=== PATIENT | female | born 1970 | race Caucasian/White ===

== ENCOUNTER 2017-07-10 08:42 | Emergency (ER) | payer OTHER ==
[2017-07-10 08:46] VITALS: BP 150/71; PULSE 71; RESP 18; TEMP 98.4
--- NOTE | 2017-07-10 09:03 | ED ---
General Adult HPI - General Chief complaint: Extremity Injury, Upper Stated complaint: Hand injury Time Seen by Provider: 07/10/17 08:47 Source: patient, RN notes reviewed Mode of arrival: ambulatory Limitations: no limitations - History of Present Illness Initial comments: Patient is a 47-year-old female who presents emergency room today with a chief complaint of injury to the right hand and wrist area. She states that she slipped on the ice at work today approximately 2 hours ago. Doesn't pain at the base of the right thumb. States worse with extension of the right wrist. Admits to hitting the right knee but states feels just bruised. Denies any other complaints or injuries. Patient denies any recent fever, chills, shortness of breath, chest pain, back pain, abdominal pain, nausea or vomiting, numbness or tingling, headaches or visual changes, or any other complaints. - Related Data Home Medications Medication Instructions Recorded Confirmed L.acidoph,Paracasei, B.lactis 1 cap PO DAILY 07/10/17 07/10/17 [Probiotic] Previous Rx's Medication Instructions Recorded RX: Ibuprofen [Motrin] 600 mg PO Q6HR PRN #30 day 07/10/17 Allergies Allergy/AdvReac Type Severity Reaction Status Date / Time codeine AdvReac Nausea & Verified 07/10/17 08:55 Vomiting Review of Systems ROS Statement: Those systems with pertinent positive or pertinent negative responses have been documented in the HPI. ROS Other: All systems not noted in ROS Statement are negative. Past Medical History Past Medical History: No Reported History History of Any Multi-Drug Resistant Organisms: None Reported Past Surgical History: Breast Surgery, Hysterectomy, Tubal Ligation Past Psychological History: No Psychological Hx Reported Smoking Status: Current some day smoker Past Alcohol Use History: Occasional Past Drug Use History: None Reported - Past Family History Mother Family Medical History: No Reported History General Exam - General Exam Comments Initial Comments: General: The patient is awake and alert, in no distress, and does not appear acutely ill. Neck: The neck is supple, there is no tenderness or JVD. Cardiovascular: There is a regular rate and rhythm. No murmur, rub or gallop is appreciated. Respiratory: Lungs are clear to auscultation, respirations are non-labored, breath sounds are equal. No wheezes, stridor, rales, or rhonchi. Musculoskeletal: Patient does have normal appearance of the right wrist no obvious deformity. Shows good range of motion. Tender to palpation over the base of the right thumb. Sensation intact pulses equal bilateral 2+ strength 5/ 5. Neurological: A&O x 3. CN II-XII intact, There are no obvious motor or sensory deficits. Coordination appears grossly intact. Speech is normal. Skin: Skin is warm and dry and no rashes or lesions are noted. Psychiatric: Normal mood and affect. Limitations: no limitations Course Vital Signs 07/10/17 08:44 Temperature 98.4 F Pulse Rate 71 Respiratory 18 Rate Blood Pressure 150/71 O2 Sat by Pulse 100 Oximetry Medical Decision Making - Medical Decision Making X-ray reviewed negative for any acute fracture dislocation. Advised to use Erik wrap for comfort. Advised ice elevate and ibuprofen. She states ice is feeling better here in emergency room. Will be discharged home advise ibuprofen advised follow-up in 7-10 days for repeat x-rays symptoms persist. Disposition Clinical Impression: Wrist sprain Disposition: HOME SELF-CARE Condition: Good Instructions: Wrist Sprain (ED) Additional Instructions: Please use Erik wrap on up and moving around for comfort. Please ice and elevate the area at least 4 times a day for 20 minutes at a time. Please follow -up in 7-10 days for repeat x-rays if symptoms persist. Prescriptions: RX: Ibuprofen [Motrin] 600 mg PO Q6HR PRN #30 day PRN Reason: Pain Referrals: None,Stated [Primary Care Provider] - 1-2 days Jaron Mckenna DO [Doctor of Osteopathic Medicine] - 1-2 days Time of Disposition: 09:16
--- NOTE | 2017-07-10 09:09 | XR ---
EXAMINATION TYPE: XR hand complete RT DATE OF EXAM: 07/10/2017 COMPARISON: NONE HISTORY: 47-year-old female fall this morning at work, pain to the base of the thumb TECHNIQUE: 3 views FINDINGS: No acute fracture, subluxation, or dislocation is seen. Joint spaces throughout are maintained. IMPRESSION: No acute osseous abnormality seen.
== END 2017-07-10 10:08 | disposition home or self-care (01) ==
LOC: EC 08:42
DX: S63.501A Unspecified sprain of right wrist, initial encounter (principal); F17.200 Nicotine dependence, unspecified, uncomplicated; Z88.5 Allergy status to narcotic agent; W00.0XXA Fall on same level due to ice and snow, initial encounter; Y92.69 Other specified industrial and construction area as the place of occurrence of the external cause; Y99.0 Civilian activity done for income or pay
CPT/HCPCS: 99283

== ENCOUNTER 2019-06-21 13:56 | Emergency (ER) | payer OTHER ==
[2019-06-21 15:17] VITALS: BP 149/79; PULSE 73; TEMP 98.3
--- NOTE | 2019-06-21 16:40 | ED ---
Lower Extremity Injury HPI - General Chief Complaint: Extremity Injury, Lower Stated Complaint: fall, toe injury Time Seen by Provider: 06/21/19 16:38 Source: patient Mode of arrival: ambulatory Limitations: no limitations - History of Present Illness Initial Comments: Patient is a 49-year-old female presents emergency Department with complaints of left foot pain since this morning. Patient states she fell down a few stairs injuring her left foot. She's been having pain and swelling ever since. Patient denies any other injuries in the fall. She did not hit her head, no LOC, no nausea or vomiting. Patient has no other complaints at this time. She denies any previous injuries or surgeries to her left foot. Upon arrival to the ER, her vital signs are stable. - Related Data Home Medications Medication Instructions Recorded Confirmed L.acidoph,Paracasei, B.lactis 1 cap PO DAILY 07/10/17 07/10/17 [Probiotic] Previous Rx's Medication Instructions Recorded Ibuprofen [Motrin] 600 mg PO Q6HR PRN #30 day 07/10/17 Allergies Allergy/AdvReac Type Severity Reaction Status Date / Time codeine AdvReac Nausea & Verified 06/21/19 15:16 Vomiting Review of Systems ROS Statement: Those systems with pertinent positive or pertinent negative responses have been documented in the HPI. ROS Other: All systems not noted in ROS Statement are negative. Past Medical History Past Medical History: No Reported History History of Any Multi-Drug Resistant Organisms: None Reported Past Surgical History: Breast Surgery, Hysterectomy, Tubal Ligation Past Psychological History: No Psychological Hx Reported Smoking Status: Former smoker Past Alcohol Use History: Occasional Past Drug Use History: None Reported - Past Family History Mother Family Medical History: No Reported History General Exam - General Exam Comments Initial Comments: GENERAL: Well-appearing, well-nourished and in no acute distress. HEAD: Atraumatic, normocephalic. EYES: Pupils equal round and reactive to light, extraocular movements intact, sclera anicteric, conjunctiva are normal. ENT: Moist mucous membranes. NECK: Normal range of motion, supple without lymphadenopathy or JVD. LUNGS: Breath sounds clear to auscultation bilaterally and equal. No wheezes rales or rhonchi. HEART: Regular rate and rhythm without murmurs, rubs or gallops. EXTREMITIES: Pain with palpation of dorsal aspect of the left foot over the first metatarsal and first toe. There is mild swelling and bruising to the area. Patient has full range of motion of the left foot and ankle. Patient is a vascular intact. NEUROLOGICAL: Normal speech, normal gait. PSYCH: Normal mood, normal affect. SKIN: Warm, Dry, normal turgor, no rashes or lesions noted. Limitations: no limitations Course Vital Signs 06/21/19 06/21/19 15:13 17:32 Temperature 98.3 F Pulse Rate 73 Respiratory 18 17 Rate Blood Pressure 149/79 O2 Sat by Pulse 99 Oximetry Medical Decision Making - Medical Decision Making Patient is a 49-year-old female presenting with left foot pain since this morning after fall. X-ray show no acute fractures dislocations. Discussed these findings with the patient. This is most likely a bone contusion. Patient will use ice and Motrin for pain relief. She will follow up with her PCP if symptoms persist. She is in agreement with this plan of care. Disposition Clinical Impression: Contusion of left foot Disposition: HOME SELF-CARE Condition: Stable Instructions (If sedation given, give patient instructions): Arthralgia (ED) Additional Instructions: Please return to the Emergency Department if symptoms worsen or any other concerns. Continue to ice, use Motrin or Tylenol for pain relief. Is patient prescribed a controlled substance at d/c from ED?: No Referrals: None,Stated [Primary Care Provider] - 1-2 days
--- NOTE | 2019-06-21 17:03 | XR ---
EXAMINATION TYPE: XR foot complete LT DATE OF EXAM: 06/21/2019 COMPARISON: NONE HISTORY: Big toe pain TECHNIQUE: 3 views FINDINGS: There are plantar and Achilles calcaneal spurs. Metatarsals are intact. I see no fracture n or dislocation. Joint spaces are fairly normal. The big toe appears intact. IMPRESSION: No fracture seen.
[2019-06-21 17:32] VITALS: RESP 17
== END 2019-06-21 17:32 | disposition home or self-care (01) ==
LOC: EC 13:56
DX: S90.32XA Contusion of left foot, initial encounter (principal); W10.9XXA Fall (on) (from) unspecified stairs and steps, initial encounter; Z87.891 Personal history of nicotine dependence; Z88.5 Allergy status to narcotic agent; Y92.89 Other specified places as the place of occurrence of the external cause
CPT/HCPCS: 99283

== ENCOUNTER 2019-11-18 13:13 | Emergency (ER) | payer OTHER ==
[2019-11-18 13:19] VITALS: BP 141/74; PULSE 72; RESP 18; TEMP 98.1
[2019-11-18] MEDS ORDERED: LIDOCAINE 1%-EPI 1:100,000 20 ML VIAL SQ STA (13:30)
[2019-11-18] MEDS ORDERED: AMOXIC-POT CLAV 875-125MG 1 EACH TAB PO STA (13:35)
--- NOTE | 2019-11-18 13:39 | ED ---
ENT HPI - General Chief complaint: Dental/Oral Stated complaint: dental pain Time Seen by Provider: 11/18/19 13:21 Source: patient Mode of arrival: ambulatory Limitations: no limitations - History of Present Illness Initial comments: Patient is a 49-year-old female presenting to emergency Department with chief complaint of dental pain. Patient reports she has an appointment scheduled to see the dentist in 3 days but the pain continues to increase in severity. States she has fractured tooth #3 and is partially embedded in the gum. States the pain has gotten significantly worse since this morning. States she has also noticed swelling on the right side of her face but denies any pain at the [place] mouth or in the submandibular region. Denies any dysphagia, then aphagia or dyspnea. Patient states she is in the emergency department requesting antibiotics. Denies any night sweats or chills. - Related Data Home Medications Medication Instructions Recorded Confirmed L.acidoph,Paracasei, B.lactis 1 cap PO DAILY 07/10/17 07/10/17 [Probiotic] Previous Rx's Medication Instructions Recorded Ibuprofen [Motrin] 600 mg PO Q6HR PRN #30 day 07/10/17 Amoxicillin/Potassium Clav 1 tab PO Q12HR #20 tab 11/18/19 [Augmentin 875-125 Tablet] Allergies Allergy/AdvReac Type Severity Reaction Status Date / Time codeine AdvReac Nausea & Verified 11/18/19 13:18 Vomiting Review of Systems ROS Statement: Those systems with pertinent positive or pertinent negative responses have been documented in the HPI. ROS Other: All systems not noted in ROS Statement are negative. Past Medical History Past Medical History: No Reported History History of Any Multi-Drug Resistant Organisms: None Reported Past Surgical History: Breast Surgery, Hysterectomy, Tubal Ligation Past Psychological History: No Psychological Hx Reported Smoking Status: Former smoker Past Alcohol Use History: Occasional Past Drug Use History: None Reported - Past Family History Mother Family Medical History: No Reported History General Exam Limitations: no limitations General appearance: alert, in no apparent distress Head exam: Present: atraumatic, normocephalic, normal inspection Eye exam: Present: normal appearance, PERRL, EOMI Pupils: Present: normal accommodation ENT exam: Present: normal exam, normal oropharynx (Partially fractured tooth #3. No signs of periapical abscess. No oral lesions. Mild swelling on the right side of the face. No tenderness in the [place] mouthparts to mandibular region.), mucous membranes moist Neck exam: Present: normal inspection, full ROM. Absent: tenderness, lymphadenopathy Respiratory exam: Present: normal lung sounds bilaterally. Absent: respiratory distress, wheezes Cardiovascular Exam: Present: regular rate, normal rhythm, normal heart sounds Extremities exam: Present: normal inspection, full ROM Back exam: Present: normal inspection, full ROM Neurological exam: Present: alert, oriented X3 Psychiatric exam: Present: normal affect, normal mood Skin exam: Present: warm, dry, intact, normal color Course Vital Signs 11/18/19 13:14 Temperature 98.1 F Pulse Rate 72 Respiratory 18 Rate Blood Pressure 141/74 O2 Sat by Pulse 97 Oximetry Medical Decision Making - Medical Decision Making Patient is a 49-year-old female presenting to emergency Department with chief complaint abdominal pain. Patient does have partial tooth fracture on tooth #2 she woke up this morning with mild right-sided facial swelling and pain in the region. On exam she does have gingival inflammation along with right-sided mild facial swelling. No signs of Lloyd's angina. Patient will be started on Augmentin in the ED and discharged with a 10 day course of Augmentin. Advised to alternate between Tylenol and Motrin for pain control. She has an appointment in the next few days to see a dentist. Return parameters thoroughly discussed with patient is understanding and agreeable. Case discussed with physician. Disposition Clinical Impression: Acute gingival inflammation, Tooth caries Disposition: HOME SELF-CARE Condition: Good Instructions (If sedation given, give patient instructions): Toothache (ED) Additional Instructions: Take prescribed medication as directed. Follow-up with a dentist. Return to emergency department if symptoms worsen. Prescriptions: Amoxicillin/Potassium Clav [Augmentin 875-125 Tablet] 1 tab PO Q12HR #20 tab Is patient prescribed a controlled substance at d/c from ED?: No Referrals: None,Stated [Primary Care Provider] - 1-2 days Time of Disposition: 14:00
== END 2019-11-18 13:55 | disposition home or self-care (01) ==
LOC: EC 13:13
DX: K02.9 Dental caries, unspecified (principal); K05.01 Acute gingivitis, non-plaque induced; K03.81 Cracked tooth; R10.9 Unspecified abdominal pain; Z87.891 Personal history of nicotine dependence; Z88.5 Allergy status to narcotic agent
CPT/HCPCS: 99282